=== PATIENT | male | born 1955 | race Caucasian/White ===

== ENCOUNTER 2016-05-21 19:05 | Inpatient (IN) | payer BC, MEDICAID ==
[~2016-05-21] VITALS: Ht 182.9 cm; Wt 99.9 kg
[2016-05-21 23:23] VITALS: BP_SYST 107; RESP 20; TEMP 98.1
[2016-05-22 01:00] VITALS: Ht 182.9 cm; Wt 99.9 kg
[2016-05-22] MEDS ORDERED: ONDANSETRON 4 MG VIAL IV PUSH PRN (01:00)
[2016-05-22] MEDS: SODIUM BICARB 8.4% 100 ML in SODIUM CHLORIDE 0.45% 1,000 ML IV SCH ×3 (01:35→20:56)
[2016-05-22 03:38] VITALS: BP_SYST 114; RESP 18; TEMP 97.6
[2016-05-22] MEDS ORDERED: DEXTROSE 50% SYRINGE 50 ML IV PRN (06:20)
[2016-05-22] MEDS ORDERED: GLUCAGON 1 MG VIAL IM PRN (06:20)
[2016-05-22 07:20] VITALS: BP_SYST 110; RESP 20; TEMP 97.1
[2016-05-22] MEDS ORDERED: MISSING DOSE XX ONE ×4 (08:30→20:30)
[2016-05-22] MEDS: CEFTRIAXONE 1 GM in SODIUM CHLORIDE 0.9% 50 ML IV SCH (08:32)
[2016-05-22] MEDS: VENOFER 100 MG/5 ML VL IV SCH (10:02)
[2016-05-22 11:03] VITALS: BP_SYST 112; RESP 18; TEMP 98
[2016-05-22] MEDS: Hydrocodone/APAP 10/325 MG TAB PO PRN ×2 (14:52→20:07)
[2016-05-22] MEDS: DILAUDID 1 MG/ML AMP IV PRN ×2 (14:53→20:08)
[2016-05-22 17:06] VITALS: BP_SYST 116; RESP 20; TEMP 97.2
[2016-05-22 19:00] VITALS: BP_SYST 153; RESP 20; TEMP 97.5
[2016-05-22 23:02] VITALS: BP_SYST 161; RESP 22; TEMP 97.2
[2016-05-23] VITALS (14 sets, daily range): BP systolic 140–189; RESP 18–20; TEMP 97.4–98.7
[2016-05-23] MEDS: DILAUDID 1 MG/ML AMP IV PRN ×5 (00:36→22:12)
[2016-05-23] MEDS: CEFTRIAXONE 1 GM in SODIUM CHLORIDE 0.9% 50 ML IV SCH (08:34)
[2016-05-23] MEDS ORDERED: MISSING DOSE XX ONE (08:35)
[2016-05-23] MEDS: CALCIUM ACETATE 667MG CAP PO SCH ×3 (10:00→17:42)
[2016-05-23] MEDS: VENOFER 100 MG/5 ML VL IV SCH (10:01)
[2016-05-23] MEDS: Hydrocodone/APAP 10/325 MG TAB PO PRN ×2 (10:10→16:11)
[2016-05-24] VITALS (7 sets, daily range): BP systolic 157–214; RESP 18–20; TEMP 97.5–98.4
[2016-05-24] MEDS: Hydrocodone/APAP 10/325 MG TAB PO PRN ×3 (00:12→18:51)
[2016-05-24] MEDS: DILAUDID 1 MG/ML AMP IV PRN ×5 (02:32→22:34)
[2016-05-24] MEDS ORDERED: EPOETIN 40,000 UNIT VIAL SUBQ ONE (08:35)
[2016-05-24] MEDS: CALCIUM ACETATE 667MG CAP PO SCH ×3 (08:59→17:25)
[2016-05-24] MEDS: VENOFER 100 MG/5 ML VL IV SCH (09:00)
[2016-05-24] MEDS: CEFTRIAXONE 1 GM in SODIUM CHLORIDE 0.9% 50 ML IV SCH (09:00)
[2016-05-24] MEDS ORDERED: MISSING DOSE XX ONE (17:00)
[2016-05-24] MEDS: amLODIPine 5 MG TAB PO SCH (21:40)
[2016-05-24] MEDS: CARVEDILOL 25 MG TAB PO SCH (21:40)
[2016-05-25 00:25] VITALS: BP_SYST 158; RESP 18; TEMP 97.9
[2016-05-25] MEDS: Hydrocodone/APAP 10/325 MG TAB PO PRN ×5 (00:52→23:36)
[2016-05-25] MEDS: DILAUDID 1 MG/ML AMP IV PRN ×5 (03:05→20:09)
[2016-05-25 04:41] VITALS: BP_SYST 155; RESP 18; TEMP 97.6
[2016-05-25] MEDS: SODIUM CHLORIDE 0.9% FLUSH BAG 500 ML IV SCH (06:36)
[2016-05-25 07:23] VITALS: BP_SYST 177; RESP 18; TEMP 97.8
[2016-05-25] MEDS: CARVEDILOL 25 MG TAB PO SCH ×2 (08:12→22:05)
[2016-05-25] MEDS: TAMSULOSIN 0.4 MG CAP PO SCH ×2 (08:12→22:05)
[2016-05-25] MEDS: amLODIPine 5 MG TAB PO SCH ×2 (08:12→22:05)
[2016-05-25] MEDS: LISINOPRIL 20 MG TAB PO SCH (08:12)
[2016-05-25] MEDS: CALCIUM ACETATE 667MG CAP PO SCH ×3 (08:12→17:39)
[2016-05-25] MEDS: CEFTRIAXONE 1 GM in SODIUM CHLORIDE 0.9% 50 ML IV SCH (08:13)
[2016-05-25] MEDS: VENOFER 100 MG/5 ML VL IV SCH (08:19)
[2016-05-25 11:09] VITALS: BP_SYST 147; RESP 18; TEMP 98.3
[2016-05-25 15:51] VITALS: BP_SYST 161; RESP 16; TEMP 98.6
[2016-05-25 19:58] VITALS: BP_SYST 151; RESP 18; TEMP 98.3
[2016-05-26 00:09] VITALS: BP_SYST 144; RESP 18; TEMP 97.7
[2016-05-26] MEDS: DILAUDID 1 MG/ML AMP IV PRN ×5 (01:45→21:00)
[2016-05-26 04:32] VITALS: BP_SYST 147; TEMP 97.6
[2016-05-26] MEDS: SODIUM CHLORIDE 0.9% FLUSH BAG 500 ML IV SCH (05:30)
[2016-05-26 07:32] VITALS: BP_SYST 149; RESP 18; TEMP 97.8
[2016-05-26] MEDS: CALCIUM ACETATE 667MG CAP PO SCH ×3 (08:13→17:21)
[2016-05-26] MEDS: LISINOPRIL 20 MG TAB PO SCH (08:13)
[2016-05-26] MEDS: Hydrocodone/APAP 10/325 MG TAB PO PRN ×3 (08:14→20:05)
[2016-05-26] MEDS: amLODIPine 5 MG TAB PO SCH ×2 (08:14→21:01)
[2016-05-26] MEDS: CEFTRIAXONE 1 GM in SODIUM CHLORIDE 0.9% 50 ML IV SCH (08:15)
[2016-05-26] MEDS: CARVEDILOL 25 MG TAB PO SCH ×2 (08:15→21:01)
[2016-05-26 11:44] VITALS: BP_SYST 145; RESP 20; TEMP 98.4
[2016-05-26 14:56] VITALS: BP_SYST 153; RESP 18; TEMP 98.2
[2016-05-26 19:15] VITALS: BP_SYST 148; RESP 18; TEMP 97.8
[2016-05-26] MEDS: TAMSULOSIN 0.4 MG CAP PO SCH (21:01)
[2016-05-27] VITALS (8 sets, daily range): BP systolic 144–187; RESP 16–18; TEMP 97.6–98.5
[2016-05-27] MEDS: DILAUDID 1 MG/ML AMP IV PRN ×5 (00:58→21:41)
[2016-05-27] MEDS: Hydrocodone/APAP 10/325 MG TAB PO PRN ×4 (03:12→23:00)
[2016-05-27] MEDS: SODIUM CHLORIDE 0.9% FLUSH BAG 500 ML IV SCH (05:04)
[2016-05-27] MEDS: CEFTRIAXONE 1 GM in SODIUM CHLORIDE 0.9% 50 ML IV SCH (08:06)
[2016-05-27] MEDS: amLODIPine 5 MG TAB PO SCH ×2 (08:07→21:40)
[2016-05-27] MEDS: LISINOPRIL 20 MG TAB PO SCH (08:07)
[2016-05-27] MEDS: CALCIUM ACETATE 667MG CAP PO SCH ×3 (08:07→17:14)
[2016-05-27] MEDS: CARVEDILOL 25 MG TAB PO SCH ×2 (08:07→21:40)
[2016-05-27] MEDS: LEVEMIR INSULIN SUBQ SCH (11:14)
[2016-05-27] MEDS ORDERED: LACTULOSE SOLN 20GM/30ML UDC PO ONE (16:55)
[2016-05-27] MEDS: TAMSULOSIN 0.4 MG CAP PO SCH (21:40)
[2016-05-28] VITALS (11 sets, daily range): BP systolic 143–152; RESP 16–18; TEMP 97.5–98.5
[2016-05-28] MEDS: DILAUDID 1 MG/ML AMP IV PRN ×5 (02:10→23:55)
[2016-05-28] MEDS: SODIUM CHLORIDE 0.9% FLUSH BAG 500 ML IV SCH (06:35)
[2016-05-28] MEDS: CARVEDILOL 25 MG TAB PO SCH ×2 (08:55→20:16)
[2016-05-28] MEDS: Hydrocodone/APAP 10/325 MG TAB PO PRN ×3 (08:55→22:30)
[2016-05-28] MEDS: CALCIUM ACETATE 667MG CAP PO SCH ×3 (08:55→16:23)
[2016-05-28] MEDS: amLODIPine 5 MG TAB PO SCH ×2 (08:55→20:16)
[2016-05-28] MEDS: CEFTRIAXONE 1 GM in SODIUM CHLORIDE 0.9% 50 ML IV SCH (08:56)
[2016-05-28] MEDS: LISINOPRIL 20 MG TAB PO SCH (08:56)
[2016-05-28] MEDS: LEVEMIR INSULIN SUBQ SCH (10:38)
[2016-05-28] MEDS: TAMSULOSIN 0.4 MG CAP PO SCH (20:16)
[2016-05-29] VITALS (7 sets, daily range): BP systolic 116–176; RESP 18; TEMP 97.5–98
[2016-05-29] MEDS: ACETAMINOPHEN 325 MG TAB PO PRN ×2 (02:21→19:42)
[2016-05-29] MEDS: DILAUDID 1 MG/ML AMP IV PRN ×5 (03:34→22:41)
[2016-05-29] MEDS: SODIUM CHLORIDE 0.9% FLUSH BAG 500 ML IV SCH (04:41)
[2016-05-29] MEDS: Hydrocodone/APAP 10/325 MG TAB PO PRN ×4 (04:51→23:45)
[2016-05-29] MEDS: CARVEDILOL 25 MG TAB PO SCH ×2 (08:11→21:01)
[2016-05-29] MEDS: LISINOPRIL 20 MG TAB PO SCH (08:11)
[2016-05-29] MEDS: amLODIPine 5 MG TAB PO SCH ×2 (08:11→21:01)
[2016-05-29] MEDS: CALCIUM ACETATE 667MG CAP PO SCH ×3 (08:11→16:12)
[2016-05-29] MEDS: LEVEMIR INSULIN SUBQ SCH (08:44)
[2016-05-29] MEDS: TAMSULOSIN 0.4 MG CAP PO SCH (21:02)
[2016-05-30] VITALS (7 sets, daily range): BP systolic 101–157; RESP 16–18; TEMP 97.5–98.1
[2016-05-30] MEDS: DILAUDID 1 MG/ML AMP IV PRN ×5 (03:38→20:56)
[2016-05-30] MEDS: Hydrocodone/APAP 10/325 MG TAB PO PRN ×3 (05:42→18:48)
[2016-05-30] MEDS: SODIUM CHLORIDE 0.9% FLUSH BAG 500 ML IV SCH (05:42)
[2016-05-30] MEDS: amLODIPine 5 MG TAB PO SCH ×2 (08:41→20:55)
[2016-05-30] MEDS: CARVEDILOL 25 MG TAB PO SCH ×2 (08:41→20:55)
[2016-05-30] MEDS: LISINOPRIL 20 MG TAB PO SCH ×2 (08:41→20:55)
[2016-05-30] MEDS: CALCIUM ACETATE 667MG CAP PO SCH ×3 (08:41→16:58)
[2016-05-30] MEDS: LEVEMIR INSULIN SUBQ SCH (08:54)
[2016-05-30] MEDS: TAMSULOSIN 0.4 MG CAP PO SCH (20:55)
[2016-05-31] VITALS (7 sets, daily range): BP systolic 105–149; RESP 16–20; TEMP 97.6–97.9
[2016-05-31] MEDS: Hydrocodone/APAP 10/325 MG TAB PO PRN ×4 (00:39→18:53)
[2016-05-31] MEDS: DILAUDID 1 MG/ML AMP IV PRN ×5 (01:43→21:17)
[2016-05-31] MEDS: ACETAMINOPHEN 325 MG TAB PO PRN (03:37)
[2016-05-31] MEDS: SODIUM CHLORIDE 0.9% FLUSH BAG 500 ML IV SCH (05:27)
[2016-05-31] MEDS: CALCIUM ACETATE 667MG CAP PO SCH ×3 (09:49→17:12)
[2016-05-31] MEDS: amLODIPine 5 MG TAB PO SCH ×2 (09:49→21:16)
[2016-05-31] MEDS: LISINOPRIL 20 MG TAB PO SCH ×2 (09:50→21:16)
[2016-05-31] MEDS: CARVEDILOL 25 MG TAB PO SCH ×2 (09:50→21:16)
[2016-05-31] MEDS: LEVEMIR INSULIN SUBQ SCH (09:59)
[2016-05-31] MEDS: TAMSULOSIN 0.4 MG CAP PO SCH (21:16)
[2016-06-01] MEDS: Hydrocodone/APAP 10/325 MG TAB PO PRN ×2 (00:59→07:32)
[2016-06-01] MEDS: DILAUDID 1 MG/ML AMP IV PRN ×2 (01:58→06:16)
[2016-06-01 02:56] VITALS: BP_SYST 135; BP_SYST 140; BP_SYST 98
[2016-06-01 03:02] VITALS: BP_SYST 140; RESP 20; TEMP 97.9
[2016-06-01] MEDS: SODIUM CHLORIDE 0.9% FLUSH BAG 500 ML IV SCH (06:00)
[2016-06-01 07:20] VITALS: BP_SYST 152; RESP 18; TEMP 97.7
[2016-06-01] MEDS: CALCIUM ACETATE 667MG CAP PO SCH ×2 (07:58→11:58)
[2016-06-01] MEDS: amLODIPine 5 MG TAB PO SCH (08:00)
[2016-06-01] MEDS: LISINOPRIL 20 MG TAB PO SCH (08:00)
[2016-06-01] MEDS: CARVEDILOL 25 MG TAB PO SCH (08:00)
[2016-06-01] MEDS: LEVEMIR INSULIN SUBQ SCH (08:01)
[2016-06-01] MEDS: SOD BICARB 8.4% SYR 50 ML IV SCH ×2 (09:12→11:55)
[2016-06-01 10:58] VITALS: BP_SYST 152
[2016-06-01 11:43] VITALS: BP_SYST 133; RESP 16; TEMP 97.8
[2016-06-01] MEDS: ACETAMINOPHEN 325 MG TAB PO PRN (12:00)
[2016-06-01 12:22] VITALS: BP_SYST 133; RESP 16; TEMP 97.8
== END 2016-06-01 13:20 | disposition home or self-care (01) | DRG 563 ==
LOC: ENRESERVTM → ENRESERVDT → 4THE 23:15 → ENPENDDIS 23:15 → UNDODISIN 05-25 14:40
PROVIDERS: ADMIT Internal Medicine Nephrology; ATTEND Internal Medicine Nephrology
DX: S42.201A Unspecified fracture of upper end of right humerus, initial encounter for closed fracture (principal); E87.2 Acidosis; N17.9 Acute kidney failure, unspecified; E11.22 Type 2 diabetes mellitus with diabetic chronic kidney disease; I12.0 Hypertensive chronic kidney disease with stage 5 chronic kidney disease or end stage renal disease; N18.5 Chronic kidney disease, stage 5; N39.0 Urinary tract infection, site not specified; I95.1 Orthostatic hypotension; G90.9 Disorder of the autonomic nervous system, unspecified; Z79.4 Long term (current) use of insulin; F41.9 Anxiety disorder, unspecified; F32.9 Major depressive disorder, single episode, unspecified; K21.9 Gastro-esophageal reflux disease without esophagitis; W19.XXXA Unspecified fall, initial encounter; Z91.81 History of falling; Y92.9 Unspecified place or not applicable; D50.9 Iron deficiency anemia, unspecified; E87.5 Hyperkalemia; E83.39 Other disorders of phosphorus metabolism
CPT/HCPCS: 36430; 80048; 80053; 80069; 81001; 82947; 83540; 83970; 84100; 84153; 84466; 85014; 85018; 85025; 86850; 86900; 86901; 86923